=== PATIENT | male | born 1995 | race Hispanic/Latino ===

== ENCOUNTER 2023-10-23 19:36 | Emergency (ER) | payer OTHER ==
[~2023-10-23] VITALS: Ht 180.3 cm; Wt 101.2 kg
[2023-10-23 20:01] VITALS: BP 135/91; PULSE 113; RESP 18; O2SAT 98
[2023-10-23] MEDS: HYDROCODONE/ACETAMINOPHEN 5/325 MG TAB PO ONE ×2 (20:15→21:27)
[2023-10-23] MEDS: IBUPROFEN 600 MG TABLET PO ONE (20:17)
[2023-10-23] MEDS ORDERED: HYDR-4060 PO (21:48)
[2023-10-23] MEDS ORDERED: IBUP-2070 PO (21:48)
[2023-10-28] MEDS ORDERED: LOSA50TA64 PO (12:17)
[2023-10-28] MEDS ORDERED: FAMO20TA8 PO (12:17)
== END 2023-10-23 22:12 | disposition home or self-care (01) ==
LOC: EDH 19:36
DX: S52.615A Nondisplaced fracture of left ulna styloid process, initial encounter for closed fracture (principal); S52.592A Other fractures of lower end of left radius, initial encounter for closed fracture; I10 Essential (primary) hypertension; Z79.899 Other long term (current) drug therapy; V19.88XA Pedal cyclist (driver) (passenger) injured in other specified transport accidents, initial encounter; Y93.89 Activity, other specified; Y92.89 Other specified places as the place of occurrence of the external cause; Y99.8 Other external cause status
CPT/HCPCS: 73090; 73110

== ENCOUNTER 2023-10-29 07:23 | Day surgery (SDC) | payer OTHER ==
[2023-10-28 11:40] LABS: BASOPHILS # (AUTO) 0.03 K/uL (0.00-0.20); BASOPHILS % (AUTO) 0.4 % (0.0-5.0); EOSINOPHILS # (AUTO) 0.07 K/uL (0.00-0.70); HEMATOCRIT 46.5 % (42-54); IMMATURE GRANULOCYTE ABSOLUTE 0.03 K/uL (0-1); LYMPHOCYTES # (AUTO) 2.9 K/uL (1.0-4.8); LYMPHOCYTES % (AUTO) 39.5 % (21.0-51.0); MEAN CORPUSCULAR HEMOGLOBIN 27.9 pg (27.0-33.0); MEAN CORPUSCULAR HGB CONC 33.1 g/dL (32.0-36.0); MEAN CORPUSCULAR VOLUME 84.4 fL (79-99); MONOCYTES # (AUTO) 0.3 K/uL (0.1-1.0); MONOCYTES % (AUTO) 4.5 % (3.0-13.0); NEUTROPHILS # (AUTO) 3.9 K/uL (1.8-7.7); NEUTROPHILS % (AUTO) 54.2 % (40.0-77.0); PLATELET COUNT (AUTO) 352 K/uL (130-400); RED BLOOD CELL COUNT(AUTO) 5.51 MIL/uL (4.50-6.20); RED CELL DISTRIBUTION WIDTH 13.1 % (11.0-15.5); WHITE BLOOD COUNT (AUTO) 7.3 K/uL (4.8-10.8)
[2023-10-28 11:41] VITALS: BP 149/85; PULSE 79; RESP 18
[2023-10-28 11:49] LABS: INR <= 0.93 (0.85-1.15); PROTHROMBIN TIME 10.5 SEC (9.6-11.6)
[2023-10-28 11:51] LABS: PARTIAL THROMBOPLASTIN TIME 28.6 SEC (26.3-35.5)
[~2023-10-29] VITALS: Ht 177.8 cm; Wt 100.5 kg
[2023-10-29] VITALS (23 sets, daily range): BP systolic 116–155; BP diastolic 59–105; PULSE 74–127; RESP 15–20
[~2023-10-29 07:23] MED LIST: FAMO20TA8 PO; IBUP-2070 PO; LOSA50TA64 PO
[2023-10-29] MEDS: CEFAZOLIN SODIUM 2 GM VIAL ONE (08:40)
[2023-10-29] MEDS: LACTATED RINGERS 1000ML 1,000 ML IV ONE (08:40)
[2023-10-29] MEDS ORDERED: GLYCOPYRROLATE 0.2 MG/ML 5 ML VIAL ONE (09:40)
[2023-10-29] MEDS ORDERED: SUCCINYLCHOLINE CHLORIDE 20 MG/ML 10 ML VIAL ONE ×2 (09:40→09:45)
[2023-10-29] MEDS ORDERED: LIDOCAINE PF 100MG/5ML (2%) SYRINGE 5ML ONE (09:40)
[2023-10-29] MEDS ORDERED: PROPOFOL 10 MG/ML 20ML VIAL IV ONE ×2 (09:41→14:28)
[2023-10-29] MEDS ORDERED: BUPIVACAINE/PF 0.5% 30ML VIAL ONE (09:41)
[2023-10-29] MEDS ORDERED: ONDANSETRON 4MG INJ ONE (09:41)
[2023-10-29] MEDS ORDERED: MIDAZOLAM HCL 1 MG/ML 2ML VIAL ONE ×2 (09:41→14:28)
[2023-10-29] MEDS ORDERED: ROCURONIUM BROMIDE 10MG/1ML 5ML VL ONE ×2 (09:41→10:43)
[2023-10-29] MEDS ORDERED: FENTANYL CITRATE PF 50 MCG/1 ML 2ML VIAL ONE ×5 (09:41→14:32)
[2023-10-29] MEDS ORDERED: NEOSTIGMINE METHYLSULFATE 1MG/ML IV ONE (09:41)
[2023-10-29] MEDS: BUPIVACAINE/PF 0.5% 50ML 5 MG/ML VIAL IJ ONE (10:13)
[2023-10-29] MEDS ORDERED: DEXAMETHASONE SOD PHOSPHATE 10MG/ML 1ML VIAL ONE (10:36)
[2023-10-29] MEDS ORDERED: SCOPOLAMINE HYDROBROMIDE 1 EACH ADH..PATCH TD ONE (10:48)
[2023-10-29] MEDS ORDERED: ACETAMINOPHEN 1,000 MG/100 ML VIAL IV ONE (10:49)
[2023-10-29] MEDS ORDERED: FAMOTIDINE 20MG VIAL IV ONE (10:49)
[2023-10-29] MEDS ORDERED: ACET-2079 PO (11:37)
[2023-10-29] MEDS: MEPERIDINE-PF 25 MG/ML SYG ONE ×2 (12:30→12:50)
[2023-10-29] MEDS: ONDANSETRON 4MG INJ ONE (12:30)
== END 2023-10-29 16:47 | disposition home or self-care (01) ==
LOC: DAH 07:23
PROVIDERS: ATTEND Student in an Organized Health Care Education/Training Program
DX: S52.572A Other intraarticular fracture of lower end of left radius, initial encounter for closed fracture (principal); M25.532 Pain in left wrist; I10 Essential (primary) hypertension; Z82.49 Family history of ischemic heart disease and other diseases of the circulatory system; Z83.3 Family history of diabetes mellitus; Z79.1 Long term (current) use of non-steroidal anti-inflammatories (NSAID); Z72.89 Other problems related to lifestyle; Z79.899 Other long term (current) drug therapy; Z98.890 Other specified postprocedural states; V19.69XA Unspecified pedal cyclist injured in collision with other motor vehicles in traffic accident, initial encounter; Y93.89 Activity, other specified; Y92.89 Other specified places as the place of occurrence of the external cause; Y99.8 Other external cause status
CPT/HCPCS: 85025; 85610; 85730; 84134; 86140; 36415; 87641; 25608; 64417; 73100; 93005; A4663; J7120; J3490 ×4; J3010 ×5; J1100; J0330 ×2; J2001; J2250 ×2; J2704 ×2; J2405 ×2; J2710; J0665 ×2; J2175 ×2; J0690; A6223; A4649; C1713 ×8; A4215; A4223; A4222; A4221; G0168